=== PATIENT | female | born 1935 | race Caucasian/White ===

== ENCOUNTER → 2020-10-05 16:09 | Outpatient (BNVA) | payer MEDICARE, BC, SELFPAY | PROVIDERS: PCP Registered Nurse; Visit Provider Registered Nurse | DX: N39.0 Urinary tract infection, site not specified (principal); G30.1 Alzheimer's disease with late onset; F02.81 Dementia in other diseases classified elsewhere, unspecified severity, with behavioral disturbance | CPT/HCPCS: 81000 ==

== ENCOUNTER 2020-10-16 16:01 | Emergency (ER) | payer MEDICARE, BC, SELFPAY ==
[2020-10-16 16:54] VITALS: BP 172/86; PULSE 79; RESP 18; TEMP 37.2; O2SAT 97; BMI 36.7
[2020-10-16 18:10] VITALS: BP 144/74; PULSE 66; RESP 15; O2SAT 98
--- NOTE | 2020-10-16 18:12 | ED_ITS ---
HPI - Altered Mental Status General: Chief Complaint: Altered Mental Status Stated Complaint: AGITATION, WANTS EVAL FOR [facility] Time Seen by Provider: 10/16/20 17:54 Source: family (daughter) Mode of arrival: ambulatory Limitations: altered mental status History of Present Illness: HPI narrative: Patient is an 85-year-old female with a history of dementia who presents to ED today along with her daughter for complaints of worsening altered mental status. Daughter tells me over the past 4 days patient has been even more so confused than her baseline. She is waking up frequently in the middle of the night stating she needs to urinate. Daughter states she is very aggressive. Daughter states that she is talking out of her mind and is not making sense even worse than her baseline. They have been seen twice as an outpatient over the past 2 to 3 weeks for what seems like worsening dementia symptoms. They are currently looking at detention placement at [facility]. Daughter states the detention told them to bring patient to the ER for evaluation to make sure she does not have any form of infection causing her worsening symptoms. Daughter states patient has not had any recent falls. She has not noticed any swelling or bruising. She states patient has not had a cough or seems short of breath. No fevers. Patient is otherwise healthy and takes Tylenol for arthritis and one blood pressure medication. She takes sertraline, mirtazapine, lorazepam in regards to her dementia. MD complaint: altered mental status and confusion Onset (ago): day(s) (four days worsening ) Timing confirmed by: family member (daughter ) Consistency of symptoms: Getting Worse Associated symptoms: Reports no associated symptoms Review of Systems General: Reports: ROS unobtainable due to mental status [facility] ED PFSH: Medical History Age-related osteoporosis without current pathological fracture Alzheimer's disease, unspecified Body mass index [BMI] 32.0-32.9, adult Essential hypertension Insomnia Recurrent depression SunDown syndrome Surgical History History of back surgery History of bilateral knee replacement Social History Smoking and tobacco status: never smoked Alcohol intake: never Adopted: No Caregiver/support person: No Lives independently: No Household members: family Sexually active: No Current gender identity: Female Physical Exam Const: COMMON NORMALS: no acute distress and alert GENERAL APPEARANCE: cooperative ORIENTATION/CONSCIOUSNESS: Yes awake and Yes oriented to person OTHER: pt can tell me her name; she does not know her , date, or location; her answers to my questions are not relevant HENMT: COMMON NORMALS: normocephalic and atraumatic HEAD & SCALP: normocephalic and atraumatic Resp: COMMON NORMALS: normal respiratory effort and clear to auscultation bilaterally AUSCULTATION: clear to auscultation bilaterally Cardio: COMMON NORMALS: regular rate and regular rhythm RATE: regular rate RHYTHM: regular rhythm GI: COMMON NORMALS: Normal to inspection, nondistended, normoactive bowel sounds present, Soft to palpation, non-tender, No hepatosplenomegaly present and no masses INSPECTION: Yes normal to inspection AUSCULTATION: Yes normoactive bowel sounds PALPATION: Yes Soft to palpation and Yes No hepatosplenomegaly present : OTHER: pt wearing adult brief; very odorous; no rash noted to skin folds Extremity: COMMON NORMALS: normal to inspection, capillary refill normal, no joint enlargement, no clubbing, cyanosis or edema, no calf tenderness and no pedal edema GENERAL: Yes normal exam except as noted Neuro: MARIANNA COMA SCALE: document GCS findings Marianna coma scale eye opening: Spontaneous [place] coma scale verbal response: Confused [place] coma scale motor response: Obey commands [place] coma scale total score: 14 SENSORIUM/ORIENTATION: Yes alert and Yes oriented to person SPEECH: speech normal GAIT: Yes Unable to assess gait Skin: COMMON NORMALS: no rashes or lesions noted GENERAL SKIN EXAM: no rashes or lesions noted Course Vital Signs: Vital signs: Vital Signs Temperature 98.9 F 10/16/20 16:54 Pulse Rate 66 10/16/20 18:10 Respiratory Rate 15 10/16/20 18:10 Blood Pressure 144/74 10/16/20 18:10 Pulse Oximetry 98 10/16/20 18:10 MDM - Altered Mental Status MDM Narrative: Medical decision making narrative: Patient's vital signs are stable. She is not tachycardic or febrile. She has a normal white count. Her cath urine sample is nitrite positive with 4+ bacteria. We will culture. Patient was given IM Rocephin and will be discharged home on Macrobid. Daughter states she contacted the detention ([facility]) who stated they would be willing to take patient this evening. Daughter feels comfortable leaving with her mother and driving her there. Lab Data: Labs: Lab Results 10/16/20 10/16/20 10/16/20 Range/Units 19:30 19:30 19:30 WBC 8.9 (4.0-10.0) 10^3/ uL RBC 4.13 (4.1-5.3) 10^6/u L Hgb 12.4 (11.5-15.3) g/dL Hct 39.1 (37.0-47.0) % MCV 94.7 (81-99) fL MCH 30.0 (28.0-34.0) pg MCHC 31.7 (30.0-36.0) g/dL RDW 13.7 (12.1-15.1) % Plt Count 298 (130-400) 10^3/c mm MPV 10.3 (7.4-10.4) fL Neut % (Auto) 56.4 % Lymph % (Auto) 32.8 % [place] % (Auto) 8.5 % Eos % (Auto) 1.8 % Baso % (Auto) 0.3 % Neut # (Auto) 4.99 (1.8-7.7) 10^3/u L Lymph # (Auto) 2.9 (0.8-4.8) 10^3/u L [place] # (Auto) 0.8 (0.2-0.9) 10^3/u L Eos # (Auto) 0.2 (0.0-0.8) 10^3/u L Baso # (Auto) 0.0 (0.0-0.1) 10^3/u L Nucleated RBC % (a uto) 0 % Nucleated RBCs # 0.0 /100WBC Sodium 138 (136-145) mmol/L Potassium 3.4 L (3.5-5.1) mmol/L Chloride 100 (98-107) mmol/L Carbon Dioxide 27 (22-29) mmol/L Anion Gap 14.4 (5-19) BUN 29 H (8-23) mg/dL Creatinine 0.7 (0.5-0.9) mg/dL GFR Calculation Not Reportable Glucose 105 (65-115) mg/dL Calculated Osmolal ity 292 (285-295) mOsm/k g Lactic Acid 1.7 (0.5-2.2) mmol/L Calcium 9.2 (8.5-10.5) mg/dL Total Bilirubin 0.3 (0.15-1.2) mg/dL AST 15 (0-32) U/L ALT 13 (0-33) U/L Alkaline Phosphata se 69 (35-105) IU/L Total Protein 7.3 (6.6-8.7) g/dL Albumin 4.1 (3.5-5.2) g/dL Globulin 3.2 (1.3-4.6) g/dL Urine Color (Yellow) Urine Appearance (CLEAR) Urine pH (5-7) Ur Specific Gravit y (1.005-1.030) Urine Protein (Negative) Urine Glucose (UA) (Normal) Urine Ketones (Negative) Urine Blood (Negative) Urine Nitrate (Negative) Urine Bilirubin (Negative) Urine Urobilinogen (Negative) mg/dL Ur Leukocyte Jeanie ase (Negative) Urine RBC (0-2) /hpf Urine WBC (0-5) /hpf Ur Squamous Epith Cells (0-5) /hpf Amorphous Sediment Urine Bacteria (NONE) /hpf Salicylates < 0.3 L (3-10) mg/dL Urine Opiates Scre en (Negative) ng/mL Acetaminophen < 5.0 L (10-30) ug/mL Ur Barbiturates Sc reen (Negative) ng/mL Ur Phencyclidine S crn (Negative) ng/mL Ur Amphetamines Sc reen (Negative) ng/mL U Benzodiazepines Scrn (Negative) ng/mL Urine Cocaine Scre en (Negative) ng/mL U Marijuana (THC) Screen (Negative) ng/mL Ethyl Alcohol < 10 (0-10) mg/dL 10/16/20 10/16/20 Range/Units 19:40 19:40 WBC (4.0-10.0) 10^3/ uL RBC (4.1-5.3) 10^6/u L Hgb (11.5-15.3) g/dL Hct (37.0-47.0) % MCV (81-99) fL MCH (28.0-34.0) pg MCHC (30.0-36.0) g/dL RDW (12.1-15.1) % Plt Count (130-400) 10^3/c mm MPV (7.4-10.4) fL Neut % (Auto) % Lymph % (Auto) % [place] % (Auto) % Eos % (Auto) % Baso % (Auto) % Neut # (Auto) (1.8-7.7) 10^3/u L Lymph # (Auto) (0.8-4.8) 10^3/u L [place] # (Auto) (0.2-0.9) 10^3/u L Eos # (Auto) (0.0-0.8) 10^3/u L Baso # (Auto) (0.0-0.1) 10^3/u L Nucleated RBC % (a uto) % Nucleated RBCs # /100WBC Sodium (136-145) mmol/L Potassium (3.5-5.1) mmol/L Chloride (98-107) mmol/L Carbon Dioxide (22-29) mmol/L Anion Gap (5-19) BUN (8-23) mg/dL Creatinine (0.5-0.9) mg/dL GFR Calculation Glucose (65-115) mg/dL Calculated Osmolal ity (285-295) mOsm/k g Lactic Acid (0.5-2.2) mmol/L Calcium (8.5-10.5) mg/dL Total Bilirubin (0.15-1.2) mg/dL AST (0-32) U/L ALT (0-33) U/L Alkaline Phosphata se (35-105) IU/L Total Protein (6.6-8.7) g/dL Albumin (3.5-5.2) g/dL Globulin (1.3-4.6) g/dL Urine Color Yellow (Yellow) Urine Appearance Clear (CLEAR) Urine pH 7 (5-7) Ur Specific Gravit y 1.005 (1.005-1.030) Urine Protein Neg (Negative) Urine Glucose (UA) Norm (Normal) Urine Ketones Negative (Negative) Urine Blood Neg (Negative) Urine Nitrate Positive H (Negative) Urine Bilirubin Neg (Negative) Urine Urobilinogen Norm (Negative) mg/dL Ur Leukocyte Jeanie ase Negative (Negative) Urine RBC 0-4 H (0-2) /hpf Urine WBC 0-4 H (0-5) /hpf Ur Squamous Epith Cells 0-4 H (0-5) /hpf Amorphous Sediment Not Reportable Urine Bacteria 4+ H (NONE) /hpf Salicylates (3-10) mg/dL Urine Opiates Scre en Negative (Negative) ng/mL Acetaminophen (10-30) ug/mL Ur Barbiturates Sc reen Negative (Negative) ng/mL Ur Phencyclidine S crn Negative (Negative) ng/mL Ur Amphetamines Sc reen Negative (Negative) ng/mL U Benzodiazepines Scrn Positive H (Negative) ng/mL Urine Cocaine Scre en Negative (Negative) ng/mL U Marijuana (THC) Screen Negative (Negative) ng/mL Ethyl Alcohol (0-10) mg/dL Imaging Data^: CXR: Radiologist's impression: [email or web address] [address] [place] [id number] XRay Report Signed Patient: Madonna Britton Unit #: [id number] : 1935 Age/Sex: 85 / F ADM Date: 10/16/20 Loc: ER Room/Bed: Attending Dr: Ordering Provider/Ordering MD: Xenia Maldonado Date of Service: 10/16/20 Procedure(s): XR chest 1V portable [id number] Accession Number(s): [id number] Report Number: [id number] PROCEDURE INFORMATION: Exam: XR Chest Exam date and time: 10/16/2020 6:28 PM Age: 85 years old Clinical indication: Other: AMS TECHNIQUE: Imaging protocol: XR of the chest. Views: 1 view. COMPARISON: No relevant prior studies available. FINDINGS: Lungs: No consolidative pulmonary infiltrates are noted. Pleural spaces: Unremarkable. No pleural effusion. No pneumothorax. Heart/Mediastinum: No cardiomegaly. Vasculature: Mildly atherosclerotic thoracic aorta. Bones/joints: Unremarkable. XR/XR chest 1V portable [id number] IMPRESSION: No acute cardiopulmonary disease demonstrated. Dictated By: Dexter Hanson MD Signed By: Dexter Hanson MD Signed Date/Time: 10/16/201902 DD/ 01 CT Head: Radiologist's impression: [address] [place] [address] CT Scan Report Signed Patient: Madonna Britton Unit #: [id number] : 1935 Age/Sex: 85 / F ADM Date: 10/16/20 Loc: ER Room/Bed: Attending Dr: Ordering Provider/Ordering MD: Xenia Maldonado Date of Service: 10/16/20 Procedure(s): CT head wo con* [id number] Accession Number(s): [id number] Report Number: [id number] PROCEDURE INFORMATION: Exam: CT Head Without Contrast Exam date and time: 10/16/2020 6:13 PM Age: 85 years old Clinical indication: Altered mental status/memory loss; Confusion or disorientation; Patient HX: Agitation w HX of alzheimers and sun downers; Additional info: AMS TECHNIQUE: Imaging protocol: Computed tomography of the head without contrast. Radiation optimization: All CT scans at this facility use at least one of these dose optimization techniques: automated exposure control; mA and/or kV adjustment per patient size (includes targeted exams where dose is matched to clinical indication); or iterative reconstruction. COMPARISON: No relevant prior studies available. RADIATION DOSE METRICS: Total DLP (mGy-cm): 879.02 FINDINGS: Brain: Moderate parenchymal volume loss noted. There is decreased attenuation of the periventricular white matter, consistent with moderate microangiopathic chronic white matter disease. No parenchymal edema identified. No intracranial hemorrhage noted. Cerebral ventricles: The ventricles are proportional to the sulci. No hydrocephalus is noted. Bones/joints: No fracture or other acute osseous abnormality. Paranasal sinuses: Visualized sinuses are unremarkable. No fluid levels. Mastoid air cells: Unremarkable as visualized. No mastoid effusion. Soft tissues: The soft tissues appear unremarkable. CT/CT head wo con* [id number] IMPRESSION: No acute intracranial abnormality demonstrated. Radiation Dose CTDIVOL = (mGy): DLP = 879.02 (mGy-cm) Dictated By: Dexter Hanson MD Signed By: Dexter Hanson MD Signed Date/Time: 10/16/201903 DD/ 02 Discharge Plan Discharge Patient Disposition: Home Clinical Impression: Acute UTI Condition: Stable Prescriptions: New Macrobid 100 mg capsule 100 mg PO BID 7 Days Qty: 14 RF: 0 No Action acetaminophen [Tylenol Arthritis Pain] 650 mg tablet extended release 650 mg PO Q12H RF: 0 triamterene-hydrochlorothiazid 37.5-25 mg capsule 1 cap PO DAILY Qty: 90 RF: 0 sertraline [Zoloft] 50 mg tablet 50 mg PO DAILY Qty: 90 RF: 0 sertraline 25 mg tablet 25 mg PO DAILY Qty: 90 RF: 0 lorazepam 0.5 mg tablet 0.5 mg PO TID PRN (Reason: anxiety) 30 Days Qty: 90 RF: 0 mirtazapine 15 mg tablet 15 mg PO DAILY 30 Days Qty: 30 RF: 0 Discharge Orders: Discharge ED (Routine); Ordered 10/16/20 Ordered By: Xenia Maldonado Referrals: Parker Benítez FNP [Primary Care Provider] - Patient Instructions: Urinary Tract Infection in Women (ED) Coding Level of Care Code ED [place] Headgate Operator for Chg Fwd Exam Comprehensive
[2020-10-16 19:41] LABS: Basophils % 0.3 %; Eosinophils # 0.2 10^3/uL (0.0-0.8); Eosinophils % 1.8 %; Hematocrit 39.1 % (37.0-47.0); Hemoglobin 12.4 g/dL (11.5-15.3); Lymphocytes # 2.9 10^3/uL (0.8-4.8); Lymphocytes % 32.8 %; Mean Corpuscular HGB Conc 31.7 g/dL (30.0-36.0); Mean Corpuscular Volume 94.7 fL (81-99); Mean Platelet Volume 10.3 fL (7.4-10.4); Monocytes # 0.8 10^3/uL (0.2-0.9); Monocytes % 8.5 %; Neutrophils # 4.99 10^3/uL (1.8-7.7); Neutrophils % 56.4 %; Nucleated Red Blood Cells % 0 %; Platelet Count 298 10^3/cmm (130-400); Red Blood Count 4.13 10^6/uL (4.1-5.3); Red Cell Distribution Width 13.7 % (12.1-15.1); White Blood Count 8.9 10^3/uL (4.0-10.0)
[2020-10-16 20:04] LABS: Alanine Aminotransferase 13 U/L (0-33); Albumin Level 4.1 g/dL (3.5-5.2); Alkaline Phosphatase 69 IU/L (35-105); Anion Gap 14.4 (5-19); Aspartate Amino Transferase 15 U/L (0-32); Blood Urea Nitrogen 29 mg/dL (8-23); Calcium 9.2 mg/dL (8.5-10.5); Carbon Dioxide 27 mmol/L (22-29); Chloride 100 mmol/L (98-107); Globulin 3.2 g/dL (1.3-4.6); Glucose 105 mg/dL (65-115); Lactic Sepsis W/Reflex 1.7 mmol/L (0.5-2.2); Osmolality Calculated 292 mOsm/kg (285-295); Potassium 3.4 mmol/L (3.5-5.1); Sodium 138 mmol/L (136-145); Total Bilirubin 0.3 mg/dL (0.15-1.2); Total Protein 7.3 g/dL (6.6-8.7)
[2020-10-16 20:05] LABS: Amphetamines Screen Urine Negative (Negative); Barbiturates Screen Urine Negative (Negative); Benzodiazepines Screen Urine Positive (Negative); Cocaine Screen Urine Negative (Negative); Opiate Screen Urine Negative (Negative); PCP Screen Urine Negative (Negative); THC Screen Urine Negative (Negative)
[2020-10-16 20:06] LABS: Blood Urine Neg (Negative); Glucose Urine UA Norm (Normal); Ketones Urine Negative (Negative); Protein Urine Neg (Negative); Specific Gravity, Urine 1.005 (1.005-1.030); Urine Appearance Clear (CLEAR); Urine Color Yellow (Yellow); pH Urine 7 (5-7)
[2020-10-16 20:07] LABS: Add Urine Culture? Yes; Add Urine Microscopic? YES; Bacteria Urine 4+ /hpf; Bilirubin Urine Neg (Negative); Leukocyte Esterase Urine Negative (Negative); Nitrate Urine Positive (Negative); RBC Urine 0-4 /hpf (0-2); Squamous Epithelial Cell Urine 0-4 /hpf (0-5); Urobilinogen Urine Norm (Negative); WBC Urine 0-4 /hpf (0-5)
[2020-10-16 20:11] LABS: Acetaminophen < 5.0 ug/mL (10-30); Alcohol Level < 10 mg/dL (0-10); Salicylate < 0.3 mg/dL (3-10)
[2020-10-16] MEDS: cefTRIAXone 1,000 mg SDV 1000 MG IM (20:40)
== END 2020-10-16 20:45 | disposition home or self-care (01) ==
PROVIDERS: Emergency Provider Physician Assistant; PCP Registered Nurse
DX: N39.0 Urinary tract infection, site not specified (principal); I10 Essential (primary) hypertension; G30.9 Alzheimer's disease, unspecified; F02.80 Dementia in other diseases classified elsewhere, unspecified severity, without behavioral disturbance, psychotic disturbance, mood disturbance, and anxiety
CPT/HCPCS: 36415; 70450; 71045; 80053; 80306; 80307; 81001; 83605; 85025; 87077; 87086; 87186; 96372; 99284; J0696

== ENCOUNTER 2022-06-24 12:30 | Outpatient (CLI) | payer MEDICARE, BC, SELFPAY ==
[2022-06-24 13:02] LABS: Basophils % 0.3 %; Eosinophils # 0.5 10^3/uL (0.0-0.8); Eosinophils % 4.8 %; Hematocrit 41.3 % (37.0-47.0); Hemoglobin 12.4 g/dL (11.5-15.3); Lymphocytes # 1.7 10^3/uL (0.8-4.8); Mean Corpuscular Hemoglobin 29.7 pg (28.0-34.0); Mean Platelet Volume 11.8 fL (7.4-10.4); Monocytes # 0.7 10^3/uL (0.2-0.9); Monocytes % 7.1 %; Neutrophils # 7.04 10^3/uL (1.8-7.7); Neutrophils % 70.2 %; Nucleated Red Blood Cells % 0 %; Platelet Count 252 10^3/cmm (130-400); Red Blood Count 4.17 10^6/uL (4.1-5.3); Red Cell Distribution Width 12.9 % (12.1-15.1)
[2022-06-24 13:09] LABS: Anion Gap 14.6 (5-19); Blood Urea Nitrogen 33 mg/dL (8-23); Calcium 9.1 mg/dL (8.5-10.5); Carbon Dioxide 31 mmol/L (22-29); Chloride 104 mmol/L (98-107); Glucose 206 mg/dL (65-115); Osmolality Calculated 315 mOsm/kg (285-295); Potassium 3.6 mmol/L (3.5-5.1); Sodium 146 mmol/L (136-145)
== END 2022-06-24 12:31 | disposition home or self-care (01) ==
PROVIDERS: PCP Registered Nurse; Visit Provider Nurse Practitioner Family
DX: N39.0 Urinary tract infection, site not specified (principal)
CPT/HCPCS: 80048; 85025

== ENCOUNTER → 2023-04-10 11:05 | Outpatient (BNVA) | payer MEDICARE, BC, SELFPAY | PROVIDERS: PCP Registered Nurse; Visit Provider Podiatrist Foot & Ankle Surgery | DX: B35.1 Tinea unguium (principal); I73.9 Peripheral vascular disease, unspecified; M20.41 Other hammer toe(s) (acquired), right foot; M20.42 Other hammer toe(s) (acquired), left foot; G30.9 Alzheimer's disease, unspecified | CPT/HCPCS: 11721; 99203 ==

== ENCOUNTER 2023-07-29 08:18 | Inpatient (IN) | payer MEDICARE, BC, MEDICAID, SELFPAY ==
[2023-07-29] VITALS (8 sets, daily range): BP systolic 109–145; BP diastolic 50–70; PULSE 73–92; RESP 15–28; TEMP 37.1–37.9; O2SAT 93–97; BMI 33.0
--- NOTE | 2023-07-29 08:23 | XRR_ITS ---
PROCEDURE INFORMATION: Exam: XR Chest Exam date and time: 07/29/2023 8:58 AM Age: 88 years old Clinical indication: Dyspnea; Additional info: Dyspnea/cough TECHNIQUE: Imaging protocol: Radiologic exam of the chest. Views: 1 view. COMPARISON: CR XR chest 1V portable [id number] 10/16/2020 6:13 PM FINDINGS: Lungs: Unremarkable. No consolidation. Pleural spaces: Unremarkable. No pleural effusion. No pneumothorax. Heart/Mediastinum: Unremarkable. No cardiomegaly. Bones/joints: Mild scoliosis with mild multilevel spondylosis. XR/XR chest 1V portable [id number] IMPRESSION: No acute disease.
--- NOTE | 2023-07-29 08:26 | ED_ITS ---
HPI - General Adult 2 General: Chief complaint: Altered Mental Status Stated complaint: AMS; FEVER Time Seen by Provider: 07/29/23 08:21 Source: patient Mode of arrival: EMS History of Present Illness: 88-year-old female resident of the [facility] dementia unit presents emergency room with a fever this morning. When staff woke her up she was altered from her usual baseline although she does have Alzheimer's dementia. She also had a low- grade fever. They had been monitoring her for COVID. No other symptoms she is completely nonverbal unable to give any assistance and history Onset (ago): minute(s) Relieving factors: none Exacerbating factors: none Associated symptoms: Reports confusion and malaise; Deny rash Review of Systems 2 General: Reports: ROS unobtainable due to medical condition and ROS unobtainable due to mental status Const: Reports: fever(s), fatigue and malaise Skin/Breast: Denies: rash Neuro: Reports: confusion PFSH ED 2 PFSH: Medical History Dementia in other diseases classified elsewhere with behavioral disturbance 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 Insomnia Body mass index [BMI] 32.0-32.9, adult Age-related osteoporosis without current pathological fracture Alzheimer's disease, unspecified Recurrent depression Essential hypertension Surgical History History of bilateral knee replacement History of back surgery Social History Smoking and tobacco/nicotine status: never used tobacco/nicotine Alcohol intake: never Substance/Drug Use: never Adopted: No Caregiver/support person: No Lives independently: No Household members: family Sexually active: No Do you think of yourself as: Straight/Heterosexual Current gender identity: Female Physical Exam 2 Const: GENERAL APPEARANCE: cooperative and comfortable O RIENTATION/CONSCIOUSNESS: Yes awake; not oriented to person, not oriented to place and not oriented to time HENMT: COMMON NORMALS: normocephalic, atraumatic and hearing grossly normal bilaterally HEAD & SCALP: normocephalic and atraumatic Resp: COMMON NORMALS: normal respiratory effort, No retractions, No use of accessory muscles and clear to auscultation bilaterally AUSCULTATION: clear to auscultation bilaterally Cardio: COMMON NORMALS: regular rate, regular rhythm and No murmurs present (Cardio) RATE: regular rate RHYTHM: regular rhythm GI: COMMON NORMALS: Soft to palpation and No hepatosplenomegaly present A USCULTATION: Yes normoactive bowel sounds PALPATION: Yes Soft to palpation, No Tenderness to palpation present (GI), No Guarding due to palpation present (GI) and Yes No hepatosplenomegaly present : COMMON NORMALS: Yes no CVA tenderness BLADDER/KIDNEY EXAM: Yes no CVA tenderness Back/Pelvis: COMMON NORMALS: no CVA tenderness Extremity: COMMON NORMALS: normal to inspection, capillary refill normal, no clubbing, cyanosis or edema, no calf tenderness and no pedal edema Neuro: SENSORIUM/ORIENTATION: No oriented to person, No oriented to place and No oriented to time Skin: COMMON NORMALS: no rashes or lesions noted GENERAL SKIN EXAM: no rashes or lesions noted Course 2 Vital Signs: Vital signs: Vital Signs Temperature 100.2 F H 07/29/23 08:25 Pulse Rate 84 07/29/23 14:15 Respiratory Rate 18 07/29/23 14:15 Blood Pressure 119/70 07/29/23 13:06 Pulse Oximetry 95 07/29/23 14:15 Oxygen Delivery Me thod Room Air 07/29/23 14:15 Oxygen Flow Rate 2 07/29/23 10:11 [facility] - General Adult Medical Decision Making Pyelonephritis with fever. Cultures done start Rocephin discussed with hospitalist orders written Medical Records I reviewed the patient's medical records. Lab Data I reviewed the patient's lab results. 07/29/23 08:50 07/29/23 08:50 Radiology Impressions Chest X-Ray 07/29/23 08:23 IMPRESSION: No acute disease. Abdomen/Pelvis CT 07/29/23 08:33 IMPRESSION: 1. Multiloculated cystic mass in pelvis extending to right mid abdomen, measures approximately 25 x 16 x 20 cm. This appears to be arising from right ovary, suspicious for neoplasm. 2. Complex cystic lesion along the medial inferior aspect of left renal pelvis. Recommend follow-up with nonemergent ultrasound scan. 3. Minimal compression deformity of T7 vertebra without retropulsion. Indeterminate age fracture. THIS REPORT CONTAINS FINDINGS THAT MAY BE CRITICAL TO PATIENT CARE. The findings were verbally communicated via telephone conference with Dr. ARMENTA at 9:41 AM SLOT FLOOR ATTENDANT on 07/29/2023. The findings were acknowledged and understood. Head CT 07/29/23 08:33 IMPRESSION: 1. No acute intracranial findings. 2. New mild sinusitis. 3. Unchanged moderate atrophy of the brain with chronic ischemic changes bilaterally. Laboratory Results WBC 17.62 10^3/uL (3.29-11.43) H 07/29/23 08:50 RBC 3.49 10^6/uL (3.85-5.65) L 07/29/23 08:50 Hgb 10.80 g/dL (11.27-16.99) L 07/29/23 08:50 Hct 34.0 % (36-47) L 07/29/23 08:50 MCV 97.4 fl (85-98) 07/29/23 08:50 MCH 30.9 pg (27-33) 07/29/23 08:50 MCHC 31.8 g/dL (30-55) 07/29/23 08:50 RDW 13.4 % (12.1-15.1) 07/29/23 08:50 Plt Count 262 10^3/cmm (157-399) 07/29/23 08:50 MPV 10.4 fL (7.4-10.4) 07/29/23 08:50 Neut % (Auto) 82.9 % 07/29/23 08:50 Lymph % (Auto) 9.5 % 07/29/23 08:50 [place] % (Auto) 6.8 % 07/29/23 08:50 Eos % (Auto) 0.0 % 07/29/23 08:50 Baso % (Auto) 0.2 % 07/29/23 08:50 Neut # (Auto) 14.60 10^3/uL (1.8-7.7) H 07/29/23 08:50 Lymph # (Auto) 1.7 10^3/uL (0.8-4.8) 07/29/23 08:50 [place] # (Auto) 1.2 10^3/uL (0.2-0.9) H 07/29/23 08:50 Eos # (Auto) 0.0 10^3/uL (0.0-0.8) 07/29/23 08:50 Baso # (Auto) 0.0 10^3/uL (0.0-0.1) 07/29/23 08:50 Nucleated RBC % (auto) 0 % 07/29/23 08:50 Nucleated RBCs # 0.0 /100WBC 07/29/23 08:50 Sodium 143 mmol/L (136-145) 07/29/23 08:50 Potassium 3.1 mmol/L (3.5-5.1) L 07/29/23 08:50 Chloride 106 mmol/L (98-107) 07/29/23 08:50 Carbon Dioxide 27 mmol/L (22-29) 07/29/23 08:50 Anion Gap 13.1 (5-19) 07/29/23 08:50 BUN 21 mg/dL (8-23) 07/29/23 08:50 Creatinine 0.9 mg/dL (0.5-0.9) 07/29/23 08:50 GFR Calculation Not Reportable 07/29/23 08:50 Glucose 161 mg/dL (65-115) H 07/29/23 08:50 Calculated Osmolality 302 mOsm/kg (285-295) H 07/29/23 08:50 Lactic Acid 1.1 mmol/L (0.5-2.2) 07/29/23 08:50 Calcium 8.8 mg/dL (8.5-10.5) 07/29/23 08:50 Total Bilirubin 0.4 mg/dL (0.15-1.2) 07/29/23 08:50 AST 15 U/L (0-32) 07/29/23 08:50 ALT 8 U/L (0-33) 07/29/23 08:50 Alkaline Phosphatase 91 U/L (35-105) 07/29/23 08:50 Creatine Kinase 241 U/L (26-192) H 07/29/23 08:50 Troponin T Baseline 86 ng/L (0-10) H 07/29/23 08:50 Troponin T 120 Minute 92.47 ng/L (0-10) H 07/29/23 11:04 Delta Troponin T 6.47 ABS# (0-10) 07/29/23 11:04 Total Protein 6.1 g/dL (6.6-8.7) L 07/29/23 08:50 Albumin 3.5 g/dL (3.5-5.2) 07/29/23 08:50 Globulin 2.6 g/dL (1.3-4.6) 07/29/23 08:50 Urine Color Yellow (Yellow) 07/29/23 09:50 Urine Appearance Hazy (CLEAR) A 07/29/23 09:50 Urine pH 5 (5-7) 07/29/23 09:50 Ur Specific [place] 1.015 (1.005-1.030) 07/29/23 09:50 Urine Protein 2+ (Negative) H 07/29/23 09:50 Urine Glucose (UA) Norm (Normal) 07/29/23 09:50 Urine Ketones 1+ (Negative) H 07/29/23 09:50 Urine Blood 2+ (Negative) H 07/29/23 09:50 Urine Nitrate Positive (Negative) H 07/29/23 09:50 Urine Bilirubin Neg (Negative) 07/29/23 09:50 Urine Urobilinogen 1 mg/dL (Negative) H 07/29/23 09:50 Ur Leukocyte Esterase 2+ (Negative) H 07/29/23 09:50 Urine RBC 5-10 /hpf (0-2) H 07/29/23 09:50 Urine WBC 55-80 /hpf (0-5) H 07/29/23 09:50 Ur Squamous Epith Cells Rare /hpf (0-5) 07/29/23 09:50 Amorphous Sediment Not Reportable 07/29/23 09:50 Urine Bacteria 3+ /hpf (NONE) H 07/29/23 09:50 Coronavirus 229E (PCR) Not detected (NOT DETECT) 07/29/23 09:20 Influenza Type A Ag negative (Negative) 07/29/23 09:20 Influenza Type B Ag negative (Negative) 07/29/23 09:20 SARS-CoV-2 (PCR) Not detected (NOT DETECT) 07/29/23 09:20 All radiology interpretation(s) finalized by discharge Discharge Plan Discharge Patient Disposition: Admitted As Inpatient Admit Provider: Vee Abarca Clinical Impression: UTI (urinary tract infection), Alzheimer's disease, unspecified, Pelvic mass in female, Mass of kidney Condition: Stable Coding Level of Care Code ED Hydroelectric Plant Technician for Joseg Ronnie
--- NOTE | 2023-07-29 08:33 | CTR_ITS ---
PROCEDURE INFORMATION: Exam: CT Abdomen And Pelvis Without Contrast Exam date and time: 07/29/2023 9:08 AM Age: 88 years old Clinical indication: Abdominal pain; Generalized TECHNIQUE: Imaging protocol: Computed tomography of the abdomen and pelvis without contrast. Radiation optimization: All CT scans at this facility use at least one of these dose optimization techniques: automated exposure control; mA and/or kV adjustment per patient size (includes targeted exams where dose is matched to clinical indication); or iterative reconstruction. COMPARISON: CR (CHEST, ) 07/29/2023 8:58 AM RADIATION DOSE METRICS: Total DLP (mGy-cm): 1033.26 FINDINGS: Lungs: Minimal linear atelectasis in right lung base. Liver: Unremarkable.No mass. Gallbladder and bile ducts: Cholecystectomy. No ductal dilation. Pancreas: Atrophic changes. No ductal dilation. Spleen: Normal. No splenomegaly. Adrenal glands: Normal. No mass. Kidneys and ureters: 1 mm calculus in the upper calyx of left kidney suspected. No right calculus. No hydronephrosis. There is a complex cystic area along the inferior aspect of left renal pelvis which contains a solid nodular density in the inferior portion. This lesion measures 3.3 x 3.8 x 5 cm. Inferior solid component measures 2 x 2 cm. Stomach and bowel: Small to moderate volume stool in the colon. No obstruction. No mucosal thickening. Appendix: Appendix is not identified. No secondary evidence of appendicitis. Intraperitoneal space: Unremarkable. No free air. No significant fluid collection. Vasculature: Coronary artery calcifications. Calcifications scattered throughout aorta. Calcifications in bilateral iliac vessels. No abdominal aortic aneurysm. Lymph nodes: Unremarkable. No enlarged lymph nodes. Urinary bladder: Unremarkable as visualized. Reproductive: Multiloculated cystic mass in pelvis extending to mid abdomen, likely arising from right ovary. This measures 25 x 16 x 20 cm. There are calcifications along the periphery of the uterus. Uterus measures approximately 7 x 6 x 4 cm. Bones/joints: Superior endplate wedge compression fracture of T7 vertebra, 30% height loss. No significant retropulsion. Spondylotic changes throughout lumbar spine with vacuum disc phenomena at multiple levels. Sacroiliac joint arthritic changes. Benign-appearing small focal sclerosis in left aspect of sacrum adjacent to sacroiliac joint. Soft tissues: Unremarkable. CT/CT abdomen pelvis wo con [id number] IMPRESSION: 1. Multiloculated cystic mass in pelvis extending to right mid abdomen, measures approximately 25 x 16 x 20 cm. This appears to be arising from right ovary, suspicious for neoplasm. 2. Complex cystic lesion along the medial inferior aspect of left renal pelvis. Recommend follow-up with nonemergent ultrasound scan. 3. Minimal compression deformity of T7 vertebra without retropulsion. Indeterminate age fracture. THIS REPORT CONTAINS FINDINGS THAT MAY BE CRITICAL TO PATIENT CARE. The findings were verbally communicated via telephone conference with Dr. ARMENTA at 9:41 AM FINGER LIFT OPERATOR on 07/29/2023. The findings were acknowledged and understood.
--- NOTE | 2023-07-29 08:33 | CTR_ITS ---
PROCEDURE INFORMATION: Exam: CT Head Without Contrast Exam date and time: 07/29/2023 9:04 AM Age: 88 years old Clinical indication: Altered mental status/memory loss; Additional info: AMS TECHNIQUE: Imaging protocol: Computed tomography of the head without contrast. Radiation optimization: All CT scans at this facility use at least one of these dose optimization techniques: automated exposure control; mA and/or kV adjustment per patient size (includes targeted exams where dose is matched to clinical indication); or iterative reconstruction. COMPARISON: CT head wo con* [id number] 10/16/2020 7:03 PM RADIATION DOSE METRICS: Total DLP (mGy-cm): 831.68 FINDINGS: Brain: Unchanged moderate, diffuse atrophy of the brain.There is ill-defined, fairly symmetric low-density within the cerebral deep white matter bilaterally which is likely the sequela of chronic ischemic change due to small vessel disease. This is unchanged. No CT evidence of mass effect, intracranial hemorrhage, or acute infarct. Otherwise, unremarkable. Cerebral ventricles: Unchanged prominent ventricles due to the atrophy. Paranasal sinuses: New mild sinusitis. Mastoid air cells: Visualized mastoid air cells are well aerated. Bones/joints: Unremarkable. No acute fracture. Soft tissues: Unremarkable. CT/CT head wo con* [id number] IMPRESSION: 1. No acute intracranial findings. 2. New mild sinusitis. 3. Unchanged moderate atrophy of the brain with chronic ischemic changes bilaterally.
[2023-07-29 09:05] LABS: Basophils % 0.2 %; Lymphocytes # 1.7 10^3/uL (0.8-4.8); Lymphocytes % 9.5 %; Mean Corpuscular HGB Conc 31.8 g/dL (30-55); Mean Corpuscular Hemoglobin 30.9 pg (27-33); Mean Corpuscular Volume 97.4 fl (85-98); Mean Platelet Volume 10.4 fL (7.4-10.4); Monocytes # 1.2 10^3/uL (0.2-0.9); Monocytes % 6.8 %; Neutrophils % 82.9 %; Nucleated Red Blood Cells % 0 %; Platelet Count 262 10^3/cmm (157-399); Red Blood Count 3.49 10^6/uL (3.85-5.65); Red Cell Distribution Width 13.4 % (12.1-15.1); White Blood Count 17.62 10^3/uL (3.29-11.43)
[2023-07-29] MEDS: sodium chloride 0.9% 500 ML 999 ML IV (09:21)
[2023-07-29 09:22] LABS: Lactic Sepsis W/Reflex 1.1 mmol/L (0.5-2.2)
[2023-07-29 09:23] LABS: Troponin(5th) Baseline 86 ng/L (0-10)
[2023-07-29 09:28] LABS: Alanine Aminotransferase 8 U/L (0-33); Albumin Level 3.5 g/dL (3.5-5.2); Alkaline Phosphatase 91 U/L (35-105); Anion Gap 13.1 (5-19); Aspartate Amino Transferase 15 U/L (0-32); Blood Urea Nitrogen 21 mg/dL (8-23); Calcium 8.8 mg/dL (8.5-10.5); Carbon Dioxide 27 mmol/L (22-29); Chloride 106 mmol/L (98-107); Creatine Phosphokinase 241 U/L (26-192); Globulin 2.6 g/dL (1.3-4.6); Glucose 161 mg/dL (65-115); Osmolality Calculated 302 mOsm/kg (285-295); Potassium 3.1 mmol/L (3.5-5.1); Sodium 143 mmol/L (136-145); Total Bilirubin 0.4 mg/dL (0.15-1.2); Total Protein 6.1 g/dL (6.6-8.7)
[2023-07-29 09:50] LABS: Influenza A by IFA negative (Negative); Influenza B by IFA negative (Negative)
--- NOTE | 2023-07-29 09:50 | ECG_ITS ---
[facility] Test Date: 2023-07-29 Pat Name: Madonna Britton Department: Room: Gender: Female Director Script: : 1935 Requested By: Mino Huang Order Number: [id number] Yanira MD: Mt Eastman M.D. Measurements Intervals [place] Rate: 80 P: 0 GA: 0 QRS: 47 QRSD: 95 T: 30 QT: 377 QTc: 437 Interpretive Statements ATRIAL FIBRILLATION ABNORMAL RHYTHM ECG No previous ECG available for comparison Electronically Signed On 07-30-2023 8:27:41 CREDIT ADMINISTRATION OFFICER by Mt Eastman M.D. [id number]
[2023-07-29 10:13] LABS: Add Urine Microscopic? YES; Bilirubin Urine Neg (Negative); Blood Urine 2+ (Negative); Glucose Urine UA Norm (Normal); Ketones Urine 1+ (Negative); Leukocyte Esterase Urine 2+ (Negative); Nitrate Urine Positive (Negative); Protein Urine 2+ (Negative); Specific Gravity, Urine 1.015 (1.005-1.030); Urine Appearance Hazy (CLEAR); Urine Color Yellow (Yellow); Urobilinogen Urine 1 mg/dL (Negative); pH Urine 5 (5-7)
[2023-07-29 10:22] LABS: Add Urine Culture? Yes; Bacteria Urine 3+ /hpf; Squamous Epithelial Cell Urine RARE /hpf (0-5); WBC Urine 55-80 /hpf (0-5)
--- NOTE | 2023-07-29 10:23 | ECG_ITS ---
[facility] Test Date: 2023-07-29 Pat Name: Madonna Britton Department: Room: Gender: Female Dye Weigher Helper: : 1935 Requested By: Mino Huang Order Number: [id number] Reading MD: Mt Eastman M.D. Measurements Intervals [place] Rate: 77 P: 77 [place]: 197 QRS: 54 QRSD: 92 T: 61 QT: 388 QTc: 440 Interpretive Statements SINUS RHYTHM NONSPECIFIC ST & T-WAVE ABNORMALITY Compared to ECG 07/29/2023 09:50:11 T-wave abnormality now present Atrial fibrillation no longer present Electronically Signed On 07-30-2023 8:36:11 EQUIPMENT PROCESSOR by Mt Eastman M.D. [id number]
[2023-07-29] MEDS: cefTRIAXone 1,000 MG in sodium chloride 0.9% (plus) 50 ML 100 MG IV (10:40)
[2023-07-29 11:17] LABS: Adenovirus Not Detected (NOT DETECT); Chlamydia Pneumoniae Not Detected (NOT DETECT); Coronavirus 229E,HKU1,NL63,OC4 Not Detected (NOT DETECT); Human Metapneumovirus Not Detected (NOT DETECT); Human Rhinovirus/Enterovirus Not Detected (NOT DETECT); Influenza A Not Detected (NOT DETECT); Influenza A H1 Not Detected (NOT DETECT); Influenza A H1-2009 Not Detected (NOT DETECT); Influenza A H3 Not Detected (NOT DETECT); Influenza B Not Detected (NOT DETECT); Mycoplasma Pneumoniae Not Detected (NOT DETECT); Parainfluenza Virus Type 1 Not Detected (NOT DETECT); Parainfluenza Virus Type 2 Not Detected (NOT DETECT); Parainfluenza Virus Type 3 Not Detected (NOT DETECT); Parainfluenza Virus Type 4 Not Detected (NOT DETECT); Respiratory Syncytial Virus A Not Detected (NOT DETECT); Respiratory Syncytial Virus B Not Detected (NOT DETECT); SARS-COV-2 Not Detected (NOT DETECT)
--- NOTE | 2023-07-29 12:00 | PC.NURSE ---
va underwriter assumed care of pt at 1158, report from Misty Mcallister
[2023-07-29 12:05] LABS: Troponin 5 2HR 92.47 ng/L (0-10); Troponin 5 2HR Delta 6.47 ABS# (0-10)
--- NOTE | 2023-07-29 13:07 | PC.NURSE ---
report called to Katerina SILVER, pt stable with 18ga in the right hand.
--- NOTE | 2023-07-29 13:19 | P.HP_ITS ---
Providers/Chief Complaint 2 Admitting Physician: Vee Abarca MD Primary Care Provider: SURY Syed Chief Complaint: AMS; FEVER History of Present Illness Madonna Britton is a 88 year old female with history of dementia, slurred speech expressive aphasia from previous stroke, from long term will care presented with chief complaint of more fatigue lethargy and fever. In the ER she was diagnosed with leukocytosis, UTI, she is septic lactic acid is normal and there is no endorgan damage Judicious use of IV fluids we will give her 1 L LR bolus. She had received 1 L of bolus in the ER already received antibiotics, Patient is resting at the time of my evaluation Did convey my concerns regarding big ovarian mass 25 cm which could be malignant They do not want to pursue any diagnostic evaluation She is DNR/DNI History of dementia Eats mechanical soft diet At baseline has dysarthria with word salad Review of Systems 2 General: Reports: ROS unobtainable due to mental status Medications/Allergies Home Medications Medication Instructions Recorded Confirmed Last Taken Type acetaminophen 325 mg tablet 650 mg PO BID 07/29/23 07/29/23 Unknown History (Tylenol) acetaminophen 325 mg tablet 650 mg PO DAILY@14 07/29/23 07/29/23 Unknown History (Tylenol) alprazolam 0.25 mg tablet (Xanax) 0.25 mg PO Q6H PRN Anxiety 07/29/23 07/29/23 Unknown History bisacodyl 10 mg rectal suppository 10 mg MI DAILY PRN Constipation 07/29/23 07/29/23 Unknown History (Dulcolax (bisacodyl)) bisacodyl 5 mg tablet,delayed 5 mg PO DAILY PRN Constipation 07/29/23 07/29/23 Unknown History release (Dulcolax (bisacodyl)) docusate sodium 100 mg capsule 200 mg PO BID@07/29/23 07/29/23 Unknown History (Colace) duloxetine 60 mg capsule,delayed 60 mg PO DAILY@07/29/23 07/29/23 Unknown History release (Cymbalta) ferrous sulfate 220 mg (44 mg 325 mg PO DAILY@07/29/23 07/29/23 Unknown History iron)/5 mL oral elixir furosemide 20 mg tablet (Lasix) 40 mg PO DAILY@07/29/23 07/29/23 Unknown History loperamide 2 mg tablet (Imodium 2 mg PO Q2H PRN loose stools 07/29/23 07/29/23 Unknown History A-D) loratadine 10 mg tablet (Claritin) 10 mg PO DAILY@07/29/23 07/29/23 Unknown History olanzapine 2.5 mg tablet (Zyprexa) 2.5 mg PO DAILY@07/29/23 07/29/23 Unknown History olanzapine 5 mg tablet (Zyprexa) 5 mg PO DAILY@07/29/23 07/29/23 Unknown History pantoprazole 40 mg tablet,delayed 40 mg PO DAILY@07/29/23 07/29/23 Unknown History release (Protonix) polyethylene glycol 3350 17 gram See Rx Instructions .Route .COMPLEX 07/29/23 07/29/23 07/28/23 History oral powder packet (Miralax) potassium chloride 10 mEq 10 meq PO DAILY@07/29/23 07/29/23 Unknown History tablet,extended release trazodone 50 mg tablet 50 mg PO BEDTIME@07/29/23 07/29/23 Unknown History Allergies Allergy/AdvReac Type Severity Reaction Status Date / Time Influenza Virus Vaccines Allergy Unknown Verified 07/29/23 08:35 PFSH Acute 2 PFSH: Medical History (Updated 07/29/23 @ 14:16 by Vee Abarca MD) Dementia in other diseases classified elsewhere with behavioral disturbance 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 Insomnia Body mass index [BMI] 32.0-32.9, adult Age-related osteoporosis without current pathological fracture Alzheimer's disease, unspecified Recurrent depression Essential hypertension Surgical History History of bilateral knee replacement History of back surgery Social History Smoking and tobacco/nicotine status: never used tobacco/nicotine Alcohol intake: never Substance/Drug Use: never Adopted: No Caregiver/support person: No Lives independently: No Household members: family Sexually active: No Do you think of yourself as: Straight/Heterosexual Current gender identity: Female Vitals/I&O/Wt Last Vital Signs Temp 100.2 F H 07/29/23 08:25 Pulse 79 07/29/23 13:06 Resp 28 H 07/29/23 13:06 BP 119/70 07/29/23 13:06 Pulse Ox 94 07/29/23 13:06 O2 Del Method Room Air 07/29/23 13:06 O2 Flow Rate 2 07/29/23 10:11 07/28/23 07/29/23 07/29/23 22:59 06:59 14:59 Intake Total 550 / 550 Balance 550 / 550 Physical Exam 2 Narrative: Patient is comfortably laying flat Currently on room air Febrile Hemodynamically stable Currently pulse around 80s Tachypneic Abdomen is distended nontender Family is at the bedside Data 07/29/23 08:50 07/29/23 08:50 A&P Assessment and plan (1) Alzheimer's disease, unspecified: (2) Insomnia: Qualifiers: Insomnia type: due to medical condition Qualified Code(s): G47.01 - Insomnia due to medical condition (3) SunDown syndrome: (4) Sepsis: (5) UTI (urinary tract infection): Plan Sepsis related to UTI Start ceftriaxone Will give her second liter of bolus according to her weight She received 1 L in the ER Lactic acid is normal Criteria met with tachypnea tachycardia fever and leukocytosis Lactic acid is normal Right ovarian cyst 25 cm, concern for malignancy They do not want to pursue diagnostic evaluation DNR/DNI Eats mechanical soft diet From [facility] At baseline not very active Suffered from a stroke 9 months ago Quality of life has been deteriorating Disposition: Back to [facility] on Monday DVT prophylaxis: Lovenox I will continue antidepressants, patient seems to have recurrent sundowning with underlying dementia Information taken from her daughter who is at the bedside Hypokalemia: Will replete once she is awake currently she is asleep Attestations 2 Medical Necessity Statement*: Anticipating more than 2 midnights for management of sepsis, UTI, ovarian mass Diagnoses Alzheimer's disease, unspecified G30.9; F02.80 Insomnia due to medical condition G47.01 Insomnia type: due to medical condition SunDown syndrome F05 Sepsis A41.9 UTI (urinary tract infection) N39.0
[2023-07-29] MEDS: enoxaparin 40 mg/0.4 mL Syringe SUBCUT (13:52)
[2023-07-29] MEDS: sodium chloride 0.9% 1,000 ML 75 ML IV (13:52)
--- NOTE | 2023-07-29 14:23 | ECG_ITS ---
[facility] Test Date: 2023-07-29 Pat Name: Madonna Britton Department: Room: 270 Gender: Female Propagation Worker: : 1935 Requested By: Mino Huang Order Number: [id number] Reading MD: Mt Eastman M.D. Measurements Intervals [place] Rate: 84 P: 84 [place]: 200 QRS: 65 QRSD: 90 T: 85 QT: 286 QTc: 339 Interpretive Statements SINUS RHYTHM WITH OCCASIONAL SUPRAVENTRICULAR PREMATURE COMPLEXES NONSPECIFIC ST & T-WAVE ABNORMALITY Compared to ECG 07/29/2023 11:56:27 No significant changes Electronically Signed On 07-30-2023 8:36:28 BIOLOGICAL PHOTOGRAPHER by Mt Eastman M.D. [id number]
[2023-07-29] MEDS: lactated ringers 1,000 ML 999 ML IV (14:55)
[2023-07-29] MEDS: ketorolac 30 mg/mL INJ IVP (14:55)
[2023-07-29] MEDS: potassium chloride ER 20 mEq Tablet 40 MEQ PO (16:56)
[2023-07-30] VITALS (7 sets, daily range): BP systolic 125–156; BP diastolic 59–71; PULSE 79–90; RESP 15–20; TEMP 36.5–37.4; O2SAT 90–96
[2023-07-30] MEDS: pantoprazole DR 40 mg Tablet PO (06:27)
[2023-07-30] MEDS: duloxetine 60 mg Capsule PO (06:27)
[2023-07-30] MEDS: OLANZapine 5 mg TABLET 2.5 MG PO (06:27)
[2023-07-30 06:28] LABS: Basophils % 0.2 %; Eosinophils % 0.1 %; Hematocrit 31.8 % (36-47); Lymphocytes # 1.6 10^3/uL (0.8-4.8); Lymphocytes % 10.9 %; Mean Corpuscular HGB Conc 31.8 g/dL (30-55); Mean Corpuscular Hemoglobin 31.3 pg (27-33); Mean Corpuscular Volume 98.5 fl (85-98); Mean Platelet Volume 10.6 fL (7.4-10.4); Monocytes # 1.4 10^3/uL (0.2-0.9); Monocytes % 9.1 %; Neutrophils # 11.94 10^3/uL (1.8-7.7); Nucleated Red Blood Cells % 0 %; Platelet Count 238 10^3/cmm (157-399); Red Blood Count 3.23 10^6/uL (3.85-5.65); Red Cell Distribution Width 13.4 % (12.1-15.1); White Blood Count 15.11 10^3/uL (3.29-11.43)
[2023-07-30 06:48] LABS: Anion Gap 13.3 (5-19); Blood Urea Nitrogen 24 mg/dL (8-23); C Reactive Protein 203.7 mg/L (0.0-4.9); Calcium 8.6 mg/dL (8.5-10.5); Carbon Dioxide 24 mmol/L (22-29); Chloride 109 mmol/L (98-107); Glucose 124 mg/dL (65-115); Magnesium 2.1 mg/dL (1.7-2.3); Osmolality Calculated 301 mOsm/kg (285-295); Phosphorus 2.1 mg/dL (2.5-4.5); Potassium 3.3 mmol/L (3.5-5.1); Sodium 143 mmol/L (136-145)
[2023-07-30] MEDS: sodium chloride 0.9% 1,000 ML 75 ML IV (06:49)
[2023-07-30] MEDS: cefTRIAXone 1,000 MG in sodium chloride 0.9% (plus) 50 ML 100 MG IV (08:55)
[2023-07-30] MEDS: ipratropium-albuterol 3 mL Neb INHALATION (10:47)
--- NOTE | 2023-07-30 11:19 | P.PN_ITS ---
Subjective 2 Subjective: No fever other than 1 episode Leukocytosis trending down PT evaluation is pending Might be able to return to custodial by tomorrow Family asking for hospice referral at the time of discharge Vitals/I&O/Wt Last Vital Signs Temp 98.4 F 07/30/23 08:00 Pulse 87 07/30/23 10:00 Resp 18 07/30/23 10:00 BP 148/67 07/30/23 08:00 Pulse Ox 96 07/30/23 10:00 O2 Del Method Room Air 07/30/23 10:00 O2 Flow Rate 2 07/29/23 10:11 07/29/23 07/30/23 07/30/23 22:59 06:59 14:59 Intake Total 1060 / 1648.75 961.25 / 2610.00 120 / 120 Balance 1060 / 1648.75 961.25 / 2610.00 120 / 120 Weight last 48 hrs Weight 79.577 kg Weight 76.657 kg Physical Exam 2 Narrative: Patient oriented to self Sitting up in her bed Currently on room air Pleasant Expressive aphasia Abdomen distended nontender No signs of fluid overload or dehydration No new focal deficit Family at the bedside S1, S2 Data 07/30/23 05:37 07/30/23 05:37 Micro: Microbiology 07/29/23 09:50 Urine Culture - Preliminary Urine,Clean Catch Gram Negative Rods A&P Assessment and plan (1) Essential hypertension: (2) Pelvic mass in female: (3) UTI (urinary tract infection): (4) Sepsis: (5) Alzheimer's disease, unspecified: (6) SunDown syndrome: Plan Sepsis: Resolved Blood and urine culture report is pending Continue antibiotic Plan to discharge her tomorrow back to facility with hospice referral Pelvic mass Conservative management DNR/DNI Requested PT Patient Eliquis aphasia, oriented to herself Attestations 2 Medical Necessity Statement*: Continue medical management Diagnoses Essential hypertension I10 Pelvic mass in female R19.00 UTI (urinary tract infection) N39.0 Sepsis A41.9 Alzheimer's disease, unspecified G30.9; F02.80 SunDown syndrome F05
[2023-07-30] MEDS: enoxaparin 40 mg/0.4 mL Syringe SUBCUT (13:17)
--- NOTE | 2023-07-30 15:27 | PC.NURSE ---
notified Dr. Abarca of blood culture critical-2 out of 4 bottles positive gram stain- gram neg rods. results to follow. Dr. Abarca stated he was already aware. No New Orders Recieved.
[2023-07-31] VITALS (8 sets, daily range): BP systolic 135–167; BP diastolic 68–80; PULSE 73–84; RESP 16–20; TEMP 36.5–39.1; O2SAT 92–98
[2023-07-31 05:48] LABS: Basophils % 0.2 %; Eosinophils # 0.1 10^3/uL (0.0-0.8); Eosinophils % 1.1 %; Hematocrit 30.8 % (36-47); Lymphocytes # 2.2 10^3/uL (0.8-4.8); Mean Corpuscular HGB Conc 31.2 g/dL (30-55); Mean Corpuscular Hemoglobin 30.6 pg (27-33); Mean Corpuscular Volume 98.1 fl (85-98); Monocytes # 1.1 10^3/uL (0.2-0.9); Monocytes % 12.3 %; Neutrophils # 5.63 10^3/uL (1.8-7.7); Neutrophils % 61.9 %; Nucleated Red Blood Cells % 0 %; Platelet Count 218 10^3/cmm (157-399); Red Blood Count 3.14 10^6/uL (3.85-5.65); Red Cell Distribution Width 13.5 % (12.1-15.1)
[2023-07-31] MEDS: duloxetine 60 mg Capsule PO (06:07)
[2023-07-31] MEDS: OLANZapine 5 mg TABLET 2.5 MG PO (06:07)
[2023-07-31] MEDS: pantoprazole DR 40 mg Tablet PO (06:07)
[2023-07-31 07:29] LABS: Anion Gap 13.3 (5-19); Blood Urea Nitrogen 21 mg/dL (8-23); Calcium 9.2 mg/dL (8.5-10.5); Carbon Dioxide 27 mmol/L (22-29); Chloride 111 mmol/L (98-107); Glucose 128 mg/dL (65-115); Osmolality Calculated 311 mOsm/kg (285-295); Potassium 3.3 mmol/L (3.5-5.1); Sodium 148 mmol/L (136-145)
--- NOTE | 2023-07-31 08:18 | PC.SOCIAL ---
IMM Update Pg. 2 of IMM updated and reviewed with patient who verbalized understanding. Copy provided.
--- NOTE | 2023-07-31 09:39 | P.PN_ITS ---
Subjective 2 Subjective: Patient has been getting dialysis Family opting for less aggressive treatment at this point Multiple family meetings conducted Vitals/I&O/Wt Last Vital Signs Temp 97.6 F 08/03/23 07:47 Pulse 85 08/03/23 12:39 Resp 15 08/03/23 12:39 BP 132/62 08/03/23 07:47 Pulse Ox 92 08/03/23 12:39 O2 Del Method Room Air 08/03/23 11:30 O2 Flow Rate 2 07/31/23 16:00 Physical Exam 2 Narrative: Patient does not communicate Oriented to herself Laying supine Currently with IV line in place On 1.5 L of oxygen Dry mucous membranes Dry cracked lips Data 08/03/23 05:40 08/03/23 05:40 Micro: Microbiology 07/30/23 16:01 Blood Culture - Final Blood 07/30/23 15:52 Blood Culture - Final Blood A&P Assessment and plan (1) Recurrent depression: (2) Pelvic mass in female: (3) Mass of kidney: (4) Sepsis: (5) ESBL (extended spectrum beta-lactamase) producing bacteria infection: Plan Plan for hospice referral at discharge Continuation of antibiotics and PICC line placement Attestations 2 Medical Necessity Statement*: Continue hospitalization Coding Level of Care Code Acute Code for [facility] Fwd Diagnoses Recurrent depression F33.9 Pelvic mass in female R19.00 Mass of kidney N28.89 Sepsis A41.9 ESBL (extended spectrum beta-lactamase) producing bacteria infection A49.9; Z16.12
[2023-07-31] MEDS: meropenem 500 MG in sodium chloride 0.9% (plus) 50 ML 100 MG IV ×2 (11:02→17:47)
[2023-07-31] MEDS: dextrose 5%-sod chloride 0.9% 1,000 ML 75 ML IV (14:08)
[2023-07-31] MEDS: acetaminophen 500 mg Tablet PO (14:08)
[2023-07-31] MEDS: enoxaparin 40 mg/0.4 mL Syringe SUBCUT (14:09)
--- NOTE | 2023-07-31 15:00 | SUR.PREOP ---
TIME OUT FOR MIDLINE INSERTION
[2023-07-31] MEDS: ALPRAZolam 0.5 mg Tablet 0.25 MG PO (17:47)
[2023-08-01] VITALS (10 sets, daily range): BP systolic 138–184; BP diastolic 70–85; PULSE 82–94; RESP 16–22; TEMP 36.8–39.2; O2SAT 90–94
[2023-08-01] MEDS: meropenem 500 MG in sodium chloride 0.9% (plus) 50 ML 100 MG IV ×3 (01:03→16:35)
[2023-08-01] MEDS: dextrose 5%-sod chloride 0.9% 1,000 ML 75 ML IV (03:12)
[2023-08-01 05:43] LABS: Basophils % 0.3 %; Eosinophils # 0.1 10^3/uL (0.0-0.8); Eosinophils % 1.1 %; Hematocrit 30.6 % (36-47); Lymphocytes % 20.9 %; Mean Platelet Volume 11.1 fL (7.4-10.4); Monocytes % 10.9 %; Neutrophils # 6.28 10^3/uL (1.8-7.7); Neutrophils % 66.3 %; Nucleated Red Blood Cells % 0 %; Platelet Count 231 10^3/cmm (157-399); Red Blood Count 3.06 10^6/uL (3.85-5.65); Red Cell Distribution Width 13.4 % (12.1-15.1); White Blood Count 9.47 10^3/uL (3.29-11.43)
[2023-08-01] MEDS: OLANZapine 5 mg TABLET 2.5 MG PO (06:00)
[2023-08-01] MEDS: pantoprazole DR 40 mg Tablet PO (06:00)
[2023-08-01] MEDS: duloxetine 60 mg Capsule PO (06:00)
[2023-08-01 06:07] LABS: Anion Gap 13.8 (5-19); Blood Urea Nitrogen 22 mg/dL (8-23); Calcium 8.9 mg/dL (8.5-10.5); Carbon Dioxide 28 mmol/L (22-29); Chloride 113 mmol/L (98-107); Glucose 157 mg/dL (65-115); Osmolality Calculated 319 mOsm/kg (285-295); Potassium 3.8 mmol/L (3.5-5.1); Sodium 151 mmol/L (136-145)
--- NOTE | 2023-08-01 09:07 | P.PN_ITS ---
Subjective 2 Subjective: Patient's p.o. intake has been very poor I have increased the dose of D5 normal saline IV fluid rate to 100 mill per hour Sodium worsened to [address] Had 1 episode of fever noted yesterday Currently on meropenem Vitals/I&O/Wt Last Vital Signs Temp 99.8 F H 08/01/23 07:49 Pulse 83 08/01/23 07:49 Resp 16 08/01/23 07:49 BP 167/72 08/01/23 07:49 Pulse Ox 92 08/01/23 07:49 O2 Del Method Nasal Cannula 08/01/23 07:49 O2 Flow Rate 2 07/31/23 16:00 07/31/23 08/01/23 08/01/23 22:59 06:59 14:59 Intake Total 290 / 460 1030 / 1490 Balance 290 / 460 1030 / 1490 Weight last 48 hrs Weight 75.387 kg Weight 74.984 kg Physical Exam 2 Narrative: Oriented to herself GCS 15 S1, S2 Clinical signs of dehydration Currently on 1.5 L Resting comfortably Abdomen soft Right arm PICC line in place Data 08/01/23 05:01 08/01/23 05:01 Micro: Microbiology 07/29/23 08:54 Blood Culture - Preliminary Blood 07/29/23 08:50 Blood Culture - Preliminary Blood 07/29/23 09:50 Urine Culture - Final Urine,Clean Catch Escherichia coli esbl A&P Assessment and plan (1) Sepsis: (2) ESBL (extended spectrum beta-lactamase) producing bacteria infection: (3) Alzheimer's disease, unspecified: (4) Insomnia: Qualifiers: Insomnia type: due to medical condition Qualified Code(s): G47.01 - Insomnia due to medical condition (5) Hypernatremia: (6) Essential hypertension: (7) Pelvic mass in female: (8) UTI (urinary tract infection): Plan PICC line in place She will need Ortho pending for 2 weeks Febrile episode noted Dehydration worsened Free water deficit more than 2 L Sodium 151 Increase D5 normal saline rate to 100 mill per hour Continue Lovenox for DVT prophylaxis For now we will continue meropenem Will arrange hospice referral at the time of discharge DNR/DNI Pelvic mass Attestations 2 Medical Necessity Statement*: Continue medical management Diagnoses Sepsis A41.9 ESBL (extended spectrum beta-lactamase) producing bacteria infection A49.9; Z16.12 Alzheimer's disease, unspecified G30.9; F02.80 Insomnia due to medical condition G47.01 Insomnia type: due to medical condition Hypernatremia E87.0 Essential hypertension I10 Pelvic mass in female R19.00 UTI (urinary tract infection) N39.0
[2023-08-01] MEDS: dextrose 5% 1,000 ML 75 ML IV (10:01)
[2023-08-01] MEDS: ipratropium-albuterol 3 mL Neb INHALATION ×2 (11:31→22:11)
[2023-08-01 12:05] LABS: Blood Urea Nitrogen 18 mg/dL (8-23); Calcium 9.1 mg/dL (8.5-10.5); Carbon Dioxide 29 mmol/L (22-29); Chloride 111 mmol/L (98-107); Glucose 133 mg/dL (65-115); Osmolality Calculated 310 mOsm/kg (285-295); Sodium 148 mmol/L (136-145)
[2023-08-01] MEDS: enoxaparin 40 mg/0.4 mL Syringe SUBCUT (16:00)
[2023-08-01 17:52] LABS: Sodium 147 mmol/L (136-145)
[2023-08-01] MEDS: lidocaine 1% 5 ML in potassium chloride premix 100 ML 25 ML IV (18:40)
[2023-08-01] MEDS: amlodipine 10 mg Tablet PO (20:56)
[2023-08-01] MEDS: acetaminophen 500 mg Tablet PO (20:56)
[2023-08-01 21:35] LABS: Sodium 147 mmol/L (136-145)
[2023-08-02] VITALS (7 sets, daily range): BP systolic 133–166; BP diastolic 66–83; PULSE 75–93; RESP 16–18; TEMP 36.6–38.3; O2SAT 91–94
[2023-08-02] MEDS: meropenem 500 MG in sodium chloride 0.9% (plus) 50 ML 100 MG IV ×3 (02:34→17:29)
[2023-08-02] MEDS: dextrose 5% 1,000 ML 75 ML IV (03:23)
[2023-08-02 05:47] LABS: Anion Gap 14.1 (5-19); Blood Urea Nitrogen 14 mg/dL (8-23); Calcium 8.8 mg/dL (8.5-10.5); Carbon Dioxide 26 mmol/L (22-29); Chloride 107 mmol/L (98-107); Glucose 182 mg/dL (65-115); Osmolality Calculated 303 mOsm/kg (285-295); Potassium 3.1 mmol/L (3.5-5.1); Sodium 144 mmol/L (136-145)
[2023-08-02] MEDS: OLANZapine 5 mg TABLET 2.5 MG PO (06:09)
[2023-08-02] MEDS: pantoprazole DR 40 mg Tablet PO (06:09)
[2023-08-02] MEDS: duloxetine 60 mg Capsule PO (06:09)
--- NOTE | 2023-08-02 11:48 | P.PN_ITS ---
Subjective 2 Subjective: Spoke with her daughter today Patient is still febrile Repeating CAT scan of her abdomen and pelvis She is hypokalemic Sodium has improved There is plan to use hospice services by tomorrow if there is no significant improvement seen or CAT scans worsening of her cancer Vitals/I&O/Wt Last Vital Signs Temp 100.4 F H 08/02/23 11:42 Pulse 93 08/02/23 11:42 Resp 17 08/02/23 11:42 BP 133/66 08/02/23 11:42 Pulse Ox 93 08/02/23 11:42 O2 Del Method Room Air 08/02/23 11:42 O2 Flow Rate 2 07/31/23 16:00 08/01/23 08/02/23 08/02/23 22:59 06:59 14:59 Intake Total 1050 / 1220 1122.5 / 2342.5 655 / 655 Balance 1050 / 1220 1122.5 / 2342.5 655 / 655 Weight last 48 hrs Weight 77.882 kg Weight 75.387 kg Physical Exam 2 Narrative: Patient makes eye contact, mute, she did not say a word today when I was trying to talk to her She still spiking fever Not able to follow commands Clinically looks dehydrated Abdomen soft Lower extremity no edema Patient is wearing adult diaper Data 08/01/23 05:01 08/02/23 05:21 Micro: Microbiology 07/29/23 08:54 Blood Culture - Final Blood 07/29/23 08:50 Blood Culture - Final Blood A&P Assessment and plan (1) Pelvic mass in female: (2) Mass of kidney: (3) Hypernatremia: (4) UTI (urinary tract infection): (5) Sepsis: (6) ESBL (extended spectrum beta-lactamase) producing bacteria infection: (7) Alzheimer's disease, unspecified: (8) SunDown syndrome: Plan Sepsis, bacteremia, ESBL, repeat CT abdomen pelvis Pelvic mass Family is not interested in transferring her if there is any sign of hydronephrosis or obstruction They would pursue hospice care in case of further worsening Repeat culture results are pending She is still spiking fever DNR/DNI Hypernatremia related to dehydration: Improved with D5 Changed her IV fluids today to D5 normal saline again added vancomycin,'s spoke with her daughter over the phone Attestations 2 Medical Necessity Statement*: Patient may need hospice before discharge Diagnoses Pelvic mass in female R19.00 Mass of kidney N28.89 Hypernatremia E87.0 UTI (urinary tract infection) N39.0 Sepsis A41.9 ESBL (extended spectrum beta-lactamase) producing bacteria infection A49.9; Z16.12 Alzheimer's disease, unspecified G30.9; F02.80 SunDown syndrome F05
--- NOTE | 2023-08-02 11:48 | CTR_ITS ---
PROCEDURE INFORMATION: Exam: CT Chest Without Contrast; Diagnostic Exam date and time: 08/02/2023 10:44 PM Age: 88 years old Clinical indication: Fever; Additional info: Fever spesis TECHNIQUE: Imaging protocol: Diagnostic computed tomography of the chest without contrast. Radiation optimization: All CT scans at this facility use at least one of these dose optimization techniques: automated exposure control; mA and/or kV adjustment per patient size (includes targeted exams where dose is matched to clinical indication); or iterative reconstruction. COMPARISON: CR (CHEST, ) 07/29/2023 8:58 AM RADIATION DOSE METRICS: Total DLP (mGy-cm): 1051.07 FINDINGS: Lungs: Unremarkable. No consolidation. No masses. Pleural spaces: Unremarkable. No pneumothorax. No pleural effusion. Heart: Unremarkable. No cardiomegaly. No pericardial effusion. Coronary arteries: Coronary arterial atherosclerotic calcifications are present. Lymph nodes: Unremarkable. No enlarged lymph nodes. Vasculature: Unremarkable. No aortic aneurysm. Bones/joints: Unremarkable. No acute fracture. Soft tissues: Unremarkable. PROCEDURE INFORMATION: Exam: CT Abdomen And Pelvis Without Contrast Exam date and time: 08/02/2023 10:44 PM Age: 88 years old Clinical indication: Fever; Additional info: Fever spesis TECHNIQUE: Imaging protocol: Computed tomography of the abdomen and pelvis without contrast. Radiation optimization: All CT scans at this facility use at least one of these dose optimization techniques: automated exposure control; mA and/or kV adjustment per patient size (includes targeted exams where dose is matched to clinical indication); or iterative reconstruction. COMPARISON: CT abdomen pelvis con [id number] 07/29/2023 9:08 AM RADIATION DOSE METRICS: Total DLP (mGy-cm): 1051.07 FINDINGS: Liver: Normal. No mass. Gallbladder and bile ducts: The gallbladder is absent. Pancreas: Normal. No ductal dilation. Spleen: Normal. No splenomegaly. Adrenal glands: There is a 1.8 cm isodense lesion in the left adrenal gland measuring 41 Hounsfield units. This is indeterminate. Consider three-phase adrenal CT or adrenal MRI for further evaluation. Kidneys and ureters: Left simple appearing renal cyst is present which do not need further follow-up. There is an adjacent 2.3 cm hyperdense lesion in the inferior pole of the left kidney measuring 41 Hounsfield units which is concerning for a solid renal lesion. This is incompletely assessed on this examination. Stomach and bowel: Unremarkable. No obstruction. No mucosal thickening. Appendix: No evidence of appendicitis. Intraperitoneal space: Unremarkable. No free air. No significant fluid collection. Vasculature: Unremarkable. No abdominal aortic aneurysm. Lymph nodes: Unremarkable. No enlarged lymph nodes. Urinary bladder: Unremarkable as visualized. Reproductive: Unremarkable as visualized. Bones/joints: Multilevel degenerative disc disease in the lumbar spine. Anterior wedging of the T7 vertebral body redemonstrated and similar to the prior examination. Soft tissues: Unremarkable. Other findings: There is a large multi septated cystic mass extending out of the right pelvis measuring at least 16.8 x 26.3 x 18.8 cm again demonstrated. Silk Screen Printer consultation recommended. CT/[place] [id number] IMPRESSION: No focal consolidation, pleural effusion or suspicious pulmonary nodules or masses. IMPRESSION: 1. No bowel obstruction or inflammatory process associated with the bowel. 2. No free air or significant free fluid in the abdomen or pelvis. 3. The appendix images normally. 4. There is a 1.8 cm isodense lesion in the left adrenal gland measuring 41 Hounsfield units. This is indeterminate. Consider three-phase adrenal CT or adrenal MRI for further evaluation. 5. There is a large multi septated cystic mass extending out of the right pelvis measuring at least 16.8 x 26.3 x 18.8 cm again demonstrated. Silk Screen Printer consultation recommended. There is a 2.3 cm hyperdense lesion in the inferior pole of the left kidney measuring 41 Hounsfield units which is concerning for a solid renal lesion. This is incompletely assessed on this examination. Consider three-phase renal CT or renal MRI for further evaluation. COMMENTS: Consistent with the [employer]'s Incidental Findings Committee white paper (J Am Charan Radiol 2018): Any incidental renal lesion less than 1 cm or classified as too small to characterize, or any incidental cystic renal lesion characterized as simple-appearing, is likely benign. No follow-up imaging is recommended for these lesions per consensus recommendations based on imaging criteria.
--- NOTE | 2023-08-02 12:37 | PC.SOCIAL ---
IMM Update pg 2 of IMM updated and reviewed w/ patients daughter. Copy provided and copy dated, initialed and placed in chart.
[2023-08-02] MEDS: vancomycin 1,250 MG/250 ML PIGGYBACK 250 MG IV (12:50)
[2023-08-02] MEDS: enoxaparin 40 mg/0.4 mL Syringe SUBCUT (12:50)
[2023-08-02] MEDS: dextrose 5%-sod chloride 0.9% 1,000 ML 75 ML IV (12:51)
--- NOTE | 2023-08-02 23:00 | PC.NURSE ---
Addendum entered by Lana Amaral RN 08/02/23 23:03: Ordered to stop IV fluids. Original Note: Dr. Tubbs notified of patient having NS running at 75 ml/hr and having crackles and expiratory wheezing upon auscultation.
[2023-08-03] MEDS: meropenem 500 MG in sodium chloride 0.9% (plus) 50 ML 100 MG IV ×2 (01:17→08:06)
[2023-08-03 04:00] VITALS: BP 173/72; PULSE 82; RESP 18; TEMP 38.4; O2SAT 93
[2023-08-03] MEDS: OLANZapine 5 mg TABLET 2.5 MG PO (04:25)
[2023-08-03] MEDS: duloxetine 60 mg Capsule PO (04:26)
[2023-08-03] MEDS: amlodipine 10 mg Tablet PO (04:26)
[2023-08-03] MEDS: acetaminophen 500 mg Tablet PO (04:26)
[2023-08-03] MEDS: pantoprazole DR 40 mg Tablet PO (04:26)
[2023-08-03 06:00] VITALS: BMI 33.5
[2023-08-03 06:11] LABS: Basophils % 0.2 %; Eosinophils # 0.1 10^3/uL (0.0-0.8); Eosinophils % 0.7 %; Hematocrit 29.7 % (36-47); Lymphocytes % 15.1 %; Mean Corpuscular HGB Conc 31.3 g/dL (30-55); Mean Corpuscular Hemoglobin 30.4 pg (27-33); Mean Corpuscular Volume 97.1 fl (85-98); Mean Platelet Volume 10.9 fL (7.4-10.4); Monocytes # 1.1 10^3/uL (0.2-0.9); Monocytes % 8.5 %; Neutrophils # 9.81 10^3/uL (1.8-7.7); Neutrophils % 74.8 %; Nucleated Red Blood Cells % 0 %; Platelet Count 259 10^3/cmm (157-399); Red Blood Count 3.06 10^6/uL (3.85-5.65); Red Cell Distribution Width 13.3 % (12.1-15.1); White Blood Count 13.11 10^3/uL (3.29-11.43)
[2023-08-03] MEDS: vancomycin 1,250 MG/250 ML PIGGYBACK 250 MG IV (06:15)
[2023-08-03 06:16] VITALS: BP 144/67; TEMP 38.4
--- NOTE | 2023-08-03 06:30 | PC.NURSE ---
PRN Amlodipine given for blood pressure of 173/72. PRN Tylenol given for temperature of 101.1. Temperature recheck 101.2 and blood pressure recheck 144/67.
[2023-08-03 06:31] LABS: Anion Gap 13.1 (5-19); Blood Urea Nitrogen 14 mg/dL (8-23); Calcium 9.1 mg/dL (8.5-10.5); Carbon Dioxide 27 mmol/L (22-29); Chloride 110 mmol/L (98-107); Glucose 138 mg/dL (65-115); Osmolality Calculated 307 mOsm/kg (285-295); Potassium 3.1 mmol/L (3.5-5.1); Sodium 147 mmol/L (136-145)
[2023-08-03 07:47] VITALS: BP 132/62; PULSE 78; RESP 17; TEMP 36.4; O2SAT 93
--- NOTE | 2023-08-03 10:23 | P.DS_ITS ---
Discharge Providers Date of Admission: 07/29/23 11:17 Date of Discharge: August 03, 2023 Attending Provider at Admission: Vee Abarca MD Attending Provider at Discharge: Vee Abarca MD Primary Care Provider: SURY Syed Diagnoses at Discharge Discharge Diagnosis (1) Pelvic mass in female: Status: Acute (2) Mass of kidney: Status: Acute (3) Hypernatremia: Status: Acute (4) UTI (urinary tract infection): Status: Acute (5) Sepsis: Status: Acute (6) ESBL (extended spectrum beta-lactamase) producing bacteria infection: Status: Acute (7) Alzheimer's disease, unspecified: Status: Acute (8) SunDown syndrome: Status: Acute Reason for Visit Reason for Visit: AMS; FEVER Hospital Course Hospital Course 88-year-old female who has history of dysarthria, dementia, history of stroke, not very mobile at baseline, presented with chief complaint of fever and worsening lethargy. She was diagnosed with UTI and sepsis at the time of admission, she was put on broad-spectrum antibiotics, she was diagnosed with bacteremia ESBL, she was put on meropenem throughout hospitalization, she received a PICC line right arm 14-day treatment regimen prescribed at the time of discharge, please note there is incidental finding of big ovarian septated complex cyst Multiloculated cystic mass in pelvis extending to right mid abdomen, measures approximately 25 x 16 x 20 cm. This appears to be arising from right ovary, suspicious for neoplasm. Family does not want to pursue histological diagnosis, patient has dementia, t hey want hospice referral, if patient does not improve in next 2 weeks they would offer hospice, please note patient needs assisted feeding she tends to get dehydrated with poor p.o. intake, she required D5 to correct her hypernatremia. She is DNR/DNI for now and family would offer hospice if she further deteriorates with 2 weeks of antibiotics. Multiple family meetings (throughout hospitalization. Patient also has a T7 vertebral compression fracture up to 30% height loss. Physical Exam Narrative: Patient is oriented to herself Significant dysarthria Signs of dehydration Abdomen distended nontender S1, S2 Currently on room air Patient sometimes moaning in pain but not able to articulate Discharge Data Studies Completed and Pending Completed Studies During Hospitalization Category Date Time Status CT abdomen pelvis wo con [id number] Stat Cat Scan 07/29/23 08:[address] [place] [id number] Stat Cat Scan 08/02/23 11:[address] head wo con* [id number] Stat Cat Scan 07/29/23 08:33 Completed XR chest 1V portable [id number] Stat Exams 07/29/23 08:23 Completed Blood Cultures ([facility]) Routine Lab 07/29/23 08:50 Completed Blood Cultures ([facility]) Routine Lab 07/29/23 08:54 Completed Pending at discharge Category Date Time Status Blood Cultures ([facility]) Routine Lab 07/30/23 15:52 Results Blood Cultures ([facility]) Routine Lab 07/30/23 16:01 Results Radiology Impressions Chest X-Ray 07/29/23 08:23 IMPRESSION: No acute disease. Abdomen/Pelvis CT 07/29/23 08:33 IMPRESSION: 1. Multiloculated cystic mass in pelvis extending to right mid abdomen, measures approximately 25 x 16 x 20 cm. This appears to be arising from right ovary, suspicious for neoplasm. 2. Complex cystic lesion along the medial inferior aspect of left renal pelvis. Recommend follow-up with nonemergent ultrasound scan. 3. Minimal compression deformity of T7 vertebra without retropulsion. Indeterminate age fracture. THIS REPORT CONTAINS FINDINGS THAT MAY BE CRITICAL TO PATIENT CARE. The findings were verbally communicated via telephone conference with Dr. ARMENTA at 9:41 AM RETENTION SPECIALIST on 07/29/2023. The findings were acknowledged and understood. Head CT 07/29/23 08:33 IMPRESSION: 1. No acute intracranial findings. 2. New mild sinusitis. 3. Unchanged moderate atrophy of the brain with chronic ischemic changes bilaterally. Chest/Abdomen/Pelvis CT 08/02/23 11:48 IMPRESSION: No focal consolidation, pleural effusion or suspicious pulmonary nodules or masses. IMPRESSION: 1. No bowel obstruction or inflammatory process associated with the bowel. 2. No free air or significant free fluid in the abdomen or pelvis. 3. The appendix images normally. 4. There is a 1.8 cm isodense lesion in the left adrenal gland measuring 41 Hounsfield units. This is indeterminate. Consider three-phase adrenal CT or adrenal MRI for further evaluation. 5. There is a large multi septated cystic mass extending out of the right pelvis measuring at least 16.8 x 26.3 x 18.8 cm again demonstrated. Human Resources Technician consultation recommended. There is a 2.3 cm hyperdense lesion in the inferior pole of the left kidney measuring 41 Hounsfield units which is concerning for a solid renal lesion. This is incompletely assessed on this examination. Consider three-phase renal CT or renal MRI for further evaluation. COMMENTS: Consistent with the [employer]'s Incidental Findings Committee white paper (J Am Charan Radiol 2018): Any incidental renal lesion less than 1 cm or classified as too small to characterize, or any incidental cystic renal lesion characterized as simple-appearing, is likely benign. No follow-up imaging is recommended for these lesions per consensus recommendations based on imaging criteria. Laboratory Results WBC 13.11 10^3/uL (3.29-11.43) H 08/03/23 05:40 RBC 3.06 10^6/uL (3.85-5.65) L 08/03/23 05:40 Hgb 9.30 g/dL (11.27-16.99) L 08/03/23 05:40 Hct 29.7 % (36-47) L 08/03/23 05:40 MCV 97.1 fl (85-98) 08/03/23 05:40 MCH 30.4 pg (27-33) 08/03/23 05:40 MCHC 31.3 g/dL (30-55) 08/03/23 05:40 RDW 13.3 % (12.1-15.1) 08/03/23 05:40 Plt Count 259 10^3/cmm (157-399) 08/03/23 05:40 MPV 10.9 fL (7.4-10.4) H 08/03/23 05:40 Neut % (Auto) 74.8 % 08/03/23 05:40 Lymph % (Auto) 15.1 % 08/03/23 05:40 Turner % (Auto) 8.5 % 08/03/23 05:40 Eos % (Auto) 0.7 % 08/03/23 05:40 Baso % (Auto) 0.2 % 08/03/23 05:40 Neut # (Auto) 9.81 10^3/uL (1.8-7.7) H 08/03/23 05:40 Lymph # (Auto) 2.0 10^3/uL (0.8-4.8) 08/03/23 05:40 Turner # (Auto) 1.1 10^3/uL (0.2-0.9) H 08/03/23 05:40 Eos # (Auto) 0.1 10^3/uL (0.0-0.8) 08/03/23 05:40 Baso # (Auto) 0.0 10^3/uL (0.0-0.1) 08/03/23 05:40 Nucleated RBC % (auto) 0 % 08/03/23 05:40 Nucleated RBCs # 0.0 /100WBC 08/03/23 05:40 Sodium 147 mmol/L (136-145) H 08/03/23 05:40 Potassium 3.1 mmol/L (3.5-5.1) L 08/03/23 05:40 Chloride 110 mmol/L (98-107) H 08/03/23 05:40 Carbon Dioxide 27 mmol/L (22-29) 08/03/23 05:40 Anion Gap 13.1 (5-19) 08/03/23 05:40 BUN 14 mg/dL (8-23) 08/03/23 05:40 Creatinine 0.6 mg/dL (0.5-0.9) 08/03/23 05:40 GFR Calculation Not Reportable 08/03/23 05:40 Glucose 138 mg/dL (65-115) H 08/03/23 05:40 Calculated Osmolality 307 mOsm/kg (285-295) H 08/03/23 05:40 Lactic Acid 1.1 mmol/L (0.5-2.2) 07/29/23 08:50 Calcium 9.1 mg/dL (8.5-10.5) 08/03/23 05:40 Phosphorus 2.1 mg/dL (2.5-4.5) L 07/30/23 05:37 Magnesium 2.1 mg/dL (1.7-2.3) 07/30/23 05:37 Total Bilirubin 0.4 mg/dL (0.15-1.2) 07/29/23 08:50 AST 15 U/L (0-32) 07/29/23 08:50 ALT 8 U/L (0-33) 07/29/23 08:50 Alkaline Phosphatase 91 U/L (35-105) 07/29/23 08:50 Creatine Kinase 241 U/L (26-192) H 07/29/23 08:50 Troponin T Baseline 86 ng/L (0-10) H 07/29/23 08:50 Troponin T 120 Minute 92.47 ng/L (0-10) H 07/29/23 11:04 Delta Troponin T 6.47 ABS# (0-10) 07/29/23 11:04 C-Reactive Protein 203.7 mg/L (0.0-4.9) H 07/30/23 05:37 Total Protein 6.1 g/dL (6.6-8.7) L 07/29/23 08:50 Albumin 3.5 g/dL (3.5-5.2) 07/29/23 08:50 Globulin 2.6 g/dL (1.3-4.6) 07/29/23 08:50 Urine Color Yellow (Yellow) 07/29/23 09:50 Urine Appearance Hazy (CLEAR) A 07/29/23 09:50 Urine pH 5 (5-7) 07/29/23 09:50 Ur Specific Kouts 1.015 (1.005-1.030) 07/29/23 09:50 Urine Protein 2+ (Negative) H 07/29/23 09:50 Urine Glucose (UA) Norm (Normal) 07/29/23 09:50 Urine Ketones 1+ (Negative) H 07/29/23 09:50 Urine Blood 2+ (Negative) H 07/29/23 09:50 Urine Nitrate Positive (Negative) H 07/29/23 09:50 Urine Bilirubin Neg (Negative) 07/29/23 09:50 Urine Urobilinogen 1 mg/dL (Negative) H 07/29/23 09:50 Ur Leukocyte Esterase 2+ (Negative) H 07/29/23 09:50 Urine RBC 5-10 /hpf (0-2) H 07/29/23 09:50 Urine WBC 55-80 /hpf (0-5) H 07/29/23 09:50 Ur Squamous Epith Cells Rare /hpf (0-5) 07/29/23 09:50 Amorphous Sediment Not Reportable 07/29/23 09:50 Urine Bacteria 3+ /hpf (NONE) H 07/29/23 09:50 Coronavirus 229E (PCR) Not detected (NOT DETECT) 07/29/23 09:20 Influenza Type A Ag negative (Negative) 07/29/23 09:20 Influenza Type B Ag negative (Negative) 07/29/23 09:20 SARS-CoV-2 (PCR) Not detected (NOT DETECT) 07/29/23 09:20 Vitals Last Vital Signs Temp 97.6 F 08/03/23 07:47 Pulse 78 08/03/23 07:47 Resp 17 08/03/23 07:47 BP 132/62 08/03/23 07:47 Pulse Ox 93 08/03/23 07:47 O2 Del Method Room Air 08/03/23 07:47 O2 Flow Rate 2 07/31/23 16:00 Discharge Plan Discharge Patient Disposition: Home Condition: Critical Prescriptions: New amlodipine 10 mg Tablet 10 mg PO DAILY Qty: 30 0RF ertapenem 1 gram recon soln 1 g IV DAILY 14 Days Qty: 10 0RF Continued Tylenol 325 mg Tablet 650 mg PO DAILY@14 Tylenol 325 mg Tablet 650 mg PO BID trazodone 50 mg Tablet 50 mg PO BEDTIME@19 Miralax 17 gram Powder In Packet See Rx Instructions .ROUTE .COMPLEX Rx Instructions: 1 scoop po in the am every 2 days (mix with 8 ounces of water or juice) Zyprexa 5 mg Tablet 5 mg PO DAILY@15 Imodium A-D 2 mg Tablet 2 mg PO Q2H PRN (Reason: loose stools) Zyprexa 2.5 mg Tablet 2.5 mg PO DAILY@07 Xanax 0.25 mg Tablet 0.25 mg PO Q6H MDD 3 doses PRN (Reason: Anxiety) Dulcolax (bisacodyl) 10 mg Suppository 10 mg CA DAILY PRN (Reason: Constipation) Protonix 40 mg Tablet,Delayed Release (Dr/Ec) 40 mg PO DAILY@07 Colace 100 mg Capsule 200 mg PO BID@08,20 Dulcolax (bisacodyl) 5 mg Tablet,Delayed Release (Dr/Ec) 5 mg PO DAILY PRN (Reason: Constipation) Claritin 10 mg Tablet 10 mg PO DAILY@07 Cymbalta 60 mg Capsule,Delayed Release(Dr/Ec) 60 mg PO DAILY@07 Discontinued potassium chloride 10 mEq Tablet Extended Release 10 meq PO DAILY@07 Lasix 20 mg Tablet 40 mg PO DAILY@08 ferrous sulfate 220 mg (44 mg iron)/5 mL Elixir 325 mg PO DAILY@07 Rx Instructions: administer through straw Discharge Orders: Discharge Order (Routine); Ordered 08/03/23 Ordered By: Vee Abarca Referrals: Parker Benítez FNP [Primary Care Provider] - Patient Instructions: Altered Mental Status (ED), Opioid Safety Discharge Attestations Time Spent in Discharge Care*: greater than 30 min Quality Metrics Clinical Quality Measures [ No reported AMI, CVA or VTE this stay] Coding Level of Care Code Acute Code for Chg Fwd Diagnoses Pelvic mass in female R19.00 Mass of kidney N28.89 Hypernatremia E87.0 UTI (urinary tract infection) N39.0 Sepsis A41.9 ESBL (extended spectrum beta-lactamase) producing bacteria infection A49.9; Z16.12 Alzheimer's disease, unspecified G30.9; F02.80 SunDown syndrome F05
[2023-08-03 11:30] VITALS: PULSE 85; RESP 15; O2SAT 92
[2023-08-03 12:39] VITALS: PULSE 85; RESP 15; O2SAT 92
== END 2023-08-03 12:57 | disposition skilled nursing facility (03) | DRG 872 ==
LOC: ER 08:47 → MEDSURG 12:56
PROVIDERS: Admitting Provider Internal Medicine; Emergency Provider Family Medicine; PCP Registered Nurse; Visit Provider Internal Medicine
DX: A41.9 Sepsis, unspecified organism (principal); F05 Delirium due to known physiological condition; E87.0 Hyperosmolality and hypernatremia; Z16.12 Extended spectrum beta lactamase (ESBL) resistance; N12 Tubulo-interstitial nephritis, not specified as acute or chronic; G30.9 Alzheimer's disease, unspecified; F02.80 Dementia in other diseases classified elsewhere, unspecified severity, without behavioral disturbance, psychotic disturbance, mood disturbance, and anxiety; M81.0 Age-related osteoporosis without current pathological fracture; I10 Essential (primary) hypertension; F32.A Depression, unspecified; Z66 Do not resuscitate; D39.11 Neoplasm of uncertain behavior of right ovary; G47.01 Insomnia due to medical condition; N28.89 Other specified disorders of kidney and ureter; R19.00 Intra-abdominal and pelvic swelling, mass and lump, unspecified site; E86.0 Dehydration; E87.6 Hypokalemia; A49.9 Bacterial infection, unspecified; I69.320 Aphasia following cerebral infarction; I69.322 Dysarthria following cerebral infarction; I69.328 Other speech and language deficits following cerebral infarction
CPT/HCPCS: 36415; 36569; 36573; 70450; 71045; 71250; 74176; 80048; 80053; 81001; 82550; 83605; 83735; 84100; 84295; 84484; 85025; 86140; 87040; 87077; 87086; 87186; 87635; 87804; 93005; 94640; 96365; 96372; 97110; 97161; 97530; 99285; C1751; J0696; J1650; J1885; J2185; J3370; J3480; J7030; J7040; J7042; J7070; J7120

== ENCOUNTER → 2023-12-28 09:00 | Outpatient (BNVA) | payer MEDICARE, MEDICAID, SELFPAY | PROVIDERS: PCP Registered Nurse; Visit Provider Podiatrist Foot & Ankle Surgery | DX: B35.1 Tinea unguium (principal); I73.9 Peripheral vascular disease, unspecified; M20.41 Other hammer toe(s) (acquired), right foot; M20.42 Other hammer toe(s) (acquired), left foot | CPT/HCPCS: 11721 ==